=== PATIENT | male | born 1950 | race Caucasian/White ===

== ENCOUNTER 2017-01-13 10:04 | Outpatient (CLI) | payer OTHER ==
--- NOTE | 2017-01-13 10:41 | DIAGNOSTIC IMAGING REPORT ---
PROCEDURE: DEXA BONE DENSITY STUDY CLINICAL INDICATION: SCREENING FOR OSTEOPOROSIS COMPARISON: None. FINDINGS: LUMBAR SPINE: Not applicable (hardware). LEFT HIP: Bone mineral density 0.856, T-score -1.2, osteopenia. LEFT FEMORAL NECK: Bone mineral density 0.730, T-score -1.5, osteopenia. LEFT FOREARM: Bone mineral density 0.787, T-score is 0.7, normal (T score greater or equal to -1.0 to: NORMAL) (T score from -1.1 to -2.4: OSTEOPENIA) (T score ess than or equal to -2.5: OSTEOPOROSIS) IMPRESSION: 1. Left hip osteopenia 2. Normal left forearm 3. 10-year fracture risk: Major osteoporotic fracture 19%, hip fracture 1.6%.
== END 2017-01-13 23:00 ==
LOC: XR SRH 10:04
DX: M85.88 Other specified disorders of bone density and structure, other site (principal)

== ENCOUNTER 2017-02-19 10:40 | Outpatient (CLI) | payer OTHER ==
[2017-02-19 11:51] VITALS: BP 119/74
[2017-02-19 11:58] VITALS: BP 143/85
--- NOTE | 2017-03-19 12:03 | NUR ---
ADDENDUM: PATIENT HERE FOR PHLEBOTOMY. 18 GAUGE SALINE LOCK INSERTED WITHOUT DIFFICULTY. 500mls OF WRBC REMOVED, MEASURED WITH SCALE. PATIENT TOLERATED PROCEDURE WELL. VS REMAINED STABLE DURING THE PROCESS. DISCHARGED HOME INDEPENDENTLY. JAN
== END 2017-02-19 12:00 | disposition home or self-care (01) ==
LOC: SDP SRH 10:40 → SCU SRH 10:43 → SDP SRH 11:00
DX: E83.119 Hemochromatosis, unspecified (principal); B18.2 Chronic viral hepatitis C
CPT/HCPCS: 29240

== ENCOUNTER 2017-02-24 08:39 | Outpatient (CLI) | payer OTHER ==
--- NOTE | 2017-02-24 09:29 | DIAGNOSTIC IMAGING REPORT ---
PROCEDURE: US ABDOMEN ULTRASOUND-LIMITED INDICATION: HEREDITARY HEMOCHROMATOSIS, HEPATITIS TECHNIQUE: Esquivel scale and color Doppler sonographic images of the abdomen were obtained. COMPARISON: None. FINDINGS: Normal gallbladder and CBD (4.4 mm). Negative Vargas's sign. Normal liver and pancreas. Aorta and IVC are patent. Normal hepatopetal flow. Normal right kidney measures 13 cm. IMPRESSION: 1. Negative right upper quadrant ultrasound
== END 2017-02-24 23:00 | disposition home or self-care (01) ==
LOC: US SRH 08:39
DX: E83.110 Hereditary hemochromatosis (principal); E83.19 Other disorders of iron metabolism; B19.20 Unspecified viral hepatitis C without hepatic coma